=== PATIENT | female | born 1935 | race Caucasian/White ===

== ENCOUNTER → 2016-07-04 | Outpatient (CLI) | payer MEDICARE, MEDICAID ==
[~2016-07-04] MED LIST: ASPIRIN EC81 MG PO; COLACE100 MG PO; COREG25 MG PO; EXFORGE 10-3201 EACH PO; FISH OIL1 GM PO; LANTUS100 UNIT/1 SUBCUT; LASIX20 MG PO; PROTONIX40 MG PO; SYMBICORT 160-4.6 GM INH; SYNTHROID75 MCG PO; VITAMIN C500 M1 PO; VITAMIN D1000 UNIT PO; VITAMIN E400 UNI2 PO
== END | disposition short-term general hospital (02) ==
LOC: CLCARD 10:37
DX: I11.0 Hypertensive heart disease with heart failure (principal); I50.20 Unspecified systolic (congestive) heart failure; I25.10 Atherosclerotic heart disease of native coronary artery without angina pectoris; E11.9 Type 2 diabetes mellitus without complications; I34.0 Nonrheumatic mitral (valve) insufficiency; I25.5 Ischemic cardiomyopathy; E66.9 Obesity, unspecified; Z95.1 Presence of aortocoronary bypass graft

== ENCOUNTER 2016-07-21 20:48 | Emergency (ER) | payer MEDICARE, MEDICAID ==
[~2016-07-21] VITALS: Ht 152.4 cm; Wt 81.6 kg
[2016-07-22] MEDS ORDERED: ASPIRIN EC81 MG PO (03:47)
[2016-07-22] MEDS ORDERED: COREG25 MG PO (03:48)
[2016-07-22] MEDS ORDERED: COLACE100 MG PO (03:48)
[2016-07-22] MEDS ORDERED: FISH OIL1 GM PO (03:49)
[2016-07-22] MEDS ORDERED: EXFORGE 10-3201 EACH PO (03:49)
[2016-07-22] MEDS ORDERED: LASIX20 MG PO (03:50)
[2016-07-22] MEDS ORDERED: SYNTHROID75 MCG PO (03:51)
[2016-07-22] MEDS ORDERED: LANTUS100 UNIT/1 SUBCUT (03:51)
[2016-07-22] MEDS ORDERED: SYMBICORT 160-4.6 GM INH (03:52)
[2016-07-22] MEDS ORDERED: PROTONIX40 MG PO (03:52)
[2016-07-22] MEDS ORDERED: VITAMIN C500 M1 PO (03:53)
[2016-07-22] MEDS ORDERED: VITAMIN D1000 UNIT PO (03:54)
[2016-07-22] MEDS ORDERED: VITAMIN E400 UNI2 PO (03:55)
== END 2016-07-21 23:15 | disposition short-term general hospital (02) ==
LOC: ER 20:48
DX: I48.91 Unspecified atrial fibrillation (principal); E11.9 Type 2 diabetes mellitus without complications; I50.9 Heart failure, unspecified; J06.9 Acute upper respiratory infection, unspecified; I10 Essential (primary) hypertension; I25.10 Atherosclerotic heart disease of native coronary artery without angina pectoris; E78.5 Hyperlipidemia, unspecified; E66.9 Obesity, unspecified; J44.9 Chronic obstructive pulmonary disease, unspecified; E03.9 Hypothyroidism, unspecified; Z87.891 Personal history of nicotine dependence; Z79.82 Long term (current) use of aspirin; Z79.899 Other long term (current) drug therapy; Z88.2 Allergy status to sulfonamides; Z88.8 Allergy status to other drugs, medicaments and biological substances; Z95.1 Presence of aortocoronary bypass graft
CPT/HCPCS: J1940; J2930

== ENCOUNTER → 2016-08-15 | Outpatient (CLI) | payer MEDICARE, MEDICAID | END | disposition short-term general hospital (02) | LOC: CLCARD 08-08 02:56 | DX: I13.0 Hypertensive heart and chronic kidney disease with heart failure and stage 1 through stage 4 chronic kidney disease, or unspecified chronic kidney disease (principal); I50.9 Heart failure, unspecified; N18.9 Chronic kidney disease, unspecified; E11.22 Type 2 diabetes mellitus with diabetic chronic kidney disease; I25.10 Atherosclerotic heart disease of native coronary artery without angina pectoris; E78.5 Hyperlipidemia, unspecified; I48.0 Paroxysmal atrial fibrillation; J44.9 Chronic obstructive pulmonary disease, unspecified; I34.0 Nonrheumatic mitral (valve) insufficiency ==